=== PATIENT | female | born 1990 | race Caucasian/White ===

== ENCOUNTER 2019-01-26 07:04 | Inpatient (IN) ==
[2019-01-26] MEDS ORDERED: OXYTOCIN 30 UNITS/500 ML BAG IV PRN ×3 (07:40→14:24)
[2019-01-26] MEDS ORDERED: LACTATED RINGER'S 1,000 ML IV PRN ×3 (07:40→11:30)
[2019-01-26] MEDS: LACTATED RINGER'S 1,000 ML IV SCH ×3 (07:45→13:32)
[2019-01-26] MEDS ORDERED: BUPIVACAINE 0.25% 30 ML VIAL ONE ×2 (07:58→13:40)
[2019-01-26] MEDS ORDERED: ePHEDrine sulfate 50 MG/ML AMP ONE (07:58)
[2019-01-26] MEDS ORDERED: fentaNYL citrate 100 MCG/2 ML VIAL ONE ×2 (07:58→13:41)
[2019-01-26] MEDS ORDERED: fentaNYL 2MCG/ML ROPIV 1.25MG/ML 100 ML BAG EPI ONE (07:59)
[2019-01-26 08:05] LABS: Hematocrit (blood only) 37.4 % (37-47); Hemoglobin 13.4 g/dL (12.0-16.0); Mean Corpuscular Volume 97.9 fL (80-100); Mean Platelet Volume 10.1 fL (7.4-10.4); Platelet Count 470 K/uL (130-400); RDW Coefficient of Variation 13.5 % (11.5-14.5); RDW Standard Deviation 47.8 fL (36.4-46.3); Red Blood Count 3.82 M/uL (4.2-5.4); White Blood Count 15.78 K/uL (4.8-10.8)
[2019-01-26 08:06] LABS: Mean Corpuscular Hgb Conc 35.8 g/dL (32-36)
--- NOTE | 2019-01-26 08:54 | Obstetrical Progress Note ---
Date of Service January 26, 2019 Subjective Admit Note 28 F P1001 at 40.2 weeks admitted in labor. Cervix 6 cm by nurse. GBS is negative. Has history of splenectomy with hereditary spherocytosis. FHT Cat 1. Patient requesting an epidural and anticipate normal delivery. Physical Exam Vital Signs (Past 24 Hours): Last Vital Signs Temp 36.8 C 01/26/19 07:20 Pulse 92 H 01/26/19 08:50 Resp 20 01/26/19 07:20 BP 113/71 01/26/19 08:30 Pulse Ox 88 L 01/26/19 08:50
--- NOTE | 2019-01-26 09:08 | Anesthesiology Consultation ---
Date of Service January 26, 2019 Assessment & Plan (1) Encounter for pre-operative examination: Chart Review Chart Review: Acceptable Risk for Surgery and Patient NOT seen in Pre Admission Testing Consults Requested none ASA ASA2 Proposed Anesthesia Anesthesia Type: Labor Epidural History Height/Weight Height: 5 ft 2 in Weight: 82.1 kg Allergies Allergy/AdvReac Type Severity Reaction Status Date / Time No Known Allergies Allergy Unknown Unverified 06/12/15 03:25 Medications Home Medications Medication Instructions Recorded Confirmed Last Taken 1 tab PO DAILY 01/26/19 01/26/19 01/25/19 08:00 Active Medications Generic Name Dose Route Start Last Admin Trade Name Freq PRN Reason Stop Dose Admin Lactated Ringer's 1,000 mls @ 125 mls/hr 01/26/19 07:45 01/26/19 09:02 Lr IV 01/28/19 07:44 999 mls/hr .Q8H YOGI Administration Past Medical History Medical History Abnormal Papanicolaou smear of cervix 2018- Ascus 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 for 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 Ovarian cyst left side traeted with meducation Spherocytosis, hereditary Spondylolysis of lumbar region L5 Past Family History Family History Other No history of previous surgery No known health problems Past Surgical History Surgical History History of splenectomy 2006 Social History Smoking Status: Never smoker Hx Alcohol Use: No Hx Substance Use: No Physical Exam Vital Signs Last Vital Signs Temp 36.8 C 01/26/19 07:20 Pulse 82 01/26/19 09:05 Resp 20 01/26/19 07:20 BP 102/58 L 01/26/19 09:05 Pulse Ox 99 01/26/19 09:04 Testing Laboratory Results 01/26/19 07:51
[2019-01-26] MEDS ORDERED: ONDANSETRON INJ 2 MG/ML 2 ML VIAL IV PRN (09:16)
[2019-01-26] MEDS ORDERED: ePHEDrine sulfate 50 MG/ML AMP IV PRN (09:16)
[2019-01-26] MEDS ORDERED: NALBUPHINE HCL INJ 10 MG/ML AMP IV PRN (09:16)
[2019-01-26] MEDS ORDERED: NALOXONE HCL 0.4 MG/1 ML VIAL/CARP IV PRN (09:16)
[2019-01-26] MEDS ORDERED: DiphenhydrAMINE HCL 50 MG/ML VIAL IV PRN (09:16)
[2019-01-26] MEDS ORDERED: NALOXONE HCL 1 MG in SODIUM CHLORIDE 0.9% 1000ML 1,000 ML IV PRN (09:16)
[2019-01-26] MEDS ORDERED: fentaNYL 2MCG/ML ROPIV 1.25MG/ML 100 ML BAG EPI PRN (09:16)
--- NOTE | 2019-01-26 11:30 | Obstetrical Progress Note ---
Date of Service January 26, 2019 Physical Exam Vital Signs (Past 24 Hours): Last Vital Signs Temp 36.8 C 01/26/19 07:20 Pulse 85 01/26/19 11:24 Resp 20 01/26/19 09:35 BP 107/67 01/26/19 11:21 Pulse Ox 96 01/26/19 11:24 Genitourinary: OB Exam Abdomen: + heart tones and + vertex Manual OB Exam: + cervical dilation 7 cm and 8 cm, + cervical effacement, + station -2 and + amniotic fluid clear OB Exam Monitor Tracing: + external FHT monitor used and + category I will start Oxytocin to augment contractions
[2019-01-26] MEDS ORDERED: HYDROCORTISONE ACETATE 25 MG SUPP PR PRN (14:24)
[2019-01-26] MEDS ORDERED: BISACODYL 10 MG SUPP PR PRN (14:24)
[2019-01-26] MEDS ORDERED: BENZOCAINE 20% AER SPR 82.5 GM CAN EXT PRN (14:24)
[2019-01-26] MEDS ORDERED: ACETAMINOPHEN 325 MG TAB PO PRN (14:24)
[2019-01-26] MEDS ORDERED: SUPERCREAM 0.870% 15 GM JAR EXT PRN (14:24)
[2019-01-26] MEDS ORDERED: DIPHTHERIA/TETANUS/PERTUSSIS 0.5 ML SYR/VIAL IM ONE (14:24)
--- NOTE | 2019-01-26 14:35 | Procedure Note ---
Vaginal Delivery Summary Date of Service January 26, 2019 Vaginal Delivery Summary Delivery Note live female over intact perineum ELISABETH with delayed cord clamping Apgars 8/10 weight pending. Cord blood obtained and placenta delivered spontaneously and intact with 3VC. No tears. EBL 200 ml. Final sponge and instrument count are correct. Mom and baby stable.
--- NOTE | 2019-01-26 15:12 | Anesthesia Procedure Note ---
Date of Service January 26, 2019 Anesthesia Post Epidural Note Vital Signs Vital Signs: Temp Pulse Resp BP Pulse Ox 36.7 C 85 20 93/51 L 98 01/26/19 11:30 01/26/19 15:06 01/26/19 14:50 01/26/19 15:06 01/26/19 14:04 Pain Intensity Bilateral Head: Pain Intensity: 2 Notes Mental Status: alert / awake / arousable Patient Amnestic to Procedure: Yes Nausea / Vomiting: adequately controlled Pain: adequately controlled Airway Patency, RR, SpO2: stable & adequate BP & HR: stable & adequate Hydration State: stable & adequate Neuraxial Anesthesia: sensory block is resolving Anesthetic Complications: no major complications apparent and Pt Satisfied with anesthetic care Epidural: Removed without complications and With tip intact
[2019-01-26] MEDS: DOCUSATE SODIUM 100 MG CAP PO SCH (20:24)
[2019-01-27 07:14] LABS: Hematocrit (blood only) 33.9 % (37-47); Hemoglobin 11.8 g/dL (12.0-16.0); Mean Corpuscular Hgb Conc 34.8 g/dL (32-36); Mean Corpuscular Volume 99.7 fL (80-100); Mean Platelet Volume 10.2 fL (7.4-10.4); Platelet Count 420 K/uL (130-400); RDW Coefficient of Variation 13.6 % (11.5-14.5); RDW Standard Deviation 49.6 fL (36.4-46.3); White Blood Count 20.01 K/uL (4.8-10.8)
[2019-01-27] MEDS: PRENATAL VITAMIN 1 TAB PO SCH (08:16)
[2019-01-27] MEDS: DOCUSATE SODIUM 100 MG CAP PO SCH ×2 (08:16→20:19)
[2019-01-27] MEDS: FERROUS SULFATE 325 MG TAB PO SCH (08:16)
[2019-01-27] MEDS: IBUPROFEN 600 MG TAB PO PRN (08:16)
[2019-01-27] MEDS ORDERED: NON-FORMULARY MEDICATION (Prenatal 1 TAB) PO SCH (09:00)
--- NOTE | 2019-01-27 09:45 | Obstetrical Progress Note ---
Date of Service January 27, 2019 Assessment & Plan (1) normal course: PPD #1 pt doing well anticipate disch tomorrow Subjective Ambulation: ambulating normally Voiding: no voiding problems Passing Gas:: Yes Diet Tolerance:: regular diet Lochia:: Small Feeding Type:: breast feeding Review of Systems All systems reviewed & are unremarkable except as noted in HPI & below Physical Exam Vital Signs (Past 24 Hours) Last Vital Signs Temp 37.1 C 01/27/19 08:00 Pulse 76 01/27/19 08:00 Resp 18 01/27/19 08:00 BP 99/65 L 01/27/19 08:00 Pulse Ox 96 01/27/19 08:00 Constitutional WD/WN, vitals as above well developed and well nourished Eyes PERRL, conjunctivae normal, anicteric sclerae Neck trachea midline, no thyromegaly Respiratory normal respiratory effort, lungs clear to auscultation Auscultation: no crackles, no rales and no wheezes Cardiovascular RRR, no murmur, no edema Gastrointestinal (Abdomen) normal bowel sounds, soft, nontender, no hepatosplenomegaly Uterus is below umbilicus Musculoskeletal no cyanosis or clubbing, extremities motor strength 5/5 Skin no rashes, warm and dry Neurologic patellar DTR's 2+ bilat, sensation intact Psychiatric A+Ox3, euthymic affect Genitourinary normal external appearance
[2019-01-27] MEDS ORDERED: BISACODYL 5 MG TABEC PO SCH (20:00)
[2019-01-28 06:43] LABS: Hematocrit (blood only) 36.1 % (37-47); Hemoglobin 12.6 g/dL (12.0-16.0)
--- NOTE | 2019-01-28 08:39 | Obstetrical Progress Note ---
Date of Service January 28, 2019 Subjective doing well baby with jaundice may need to go to nesting Physical Exam Vital Signs (Past 24 Hours): Last Vital Signs Temp 37 C 01/27/19 23:40 Pulse 60 01/27/19 23:40 Resp 16 01/27/19 23:40 BP 111/70 01/27/19 23:40 Pulse Ox 96 01/27/19 23:40 Constitutional: WD/WN, vitals as above comfortable Gastrointestinal (Abdomen): Percussion/Palpation: abdomen soft fundus firm no edema neg Jessica's possible d/c later today
[2019-01-28] MEDS: FERROUS SULFATE 325 MG TAB PO SCH (09:52)
[2019-01-28] MEDS: PRENATAL VITAMIN 1 TAB PO SCH (09:52)
[2019-01-28] MEDS: DOCUSATE SODIUM 100 MG CAP PO SCH ×2 (09:52→20:25)
[2019-01-28] MEDS: IBUPROFEN 600 MG TAB PO PRN (22:09)
[2019-01-29] MEDS: PRENATAL VITAMIN 1 TAB PO SCH (08:43)
[2019-01-29] MEDS: FERROUS SULFATE 325 MG TAB PO SCH (08:43)
[2019-01-29] MEDS: DOCUSATE SODIUM 100 MG CAP PO SCH (08:43)
--- NOTE | 2019-01-29 10:54 | Obstetrical Progress Note ---
Date of Service January 29, 2019 Subjective doing well OOB tolerating diet Physical Exam Vital Signs (Past 24 Hours): Last Vital Signs Temp 36.7 C 01/29/19 07:00 Pulse 63 01/29/19 07:00 Resp 20 01/29/19 07:00 BP 101/66 01/29/19 07:00 Pulse Ox 96 01/29/19 00:45 Physical Exam: Abdomen soft fundus firm no edema neg Jessica's for discharge Results & Data Laboratory Results Laboratory Results - last 48 hr 01/28/19 05:56 Hgb 12.6 Hct 36.1 L
[2019-01-29] MEDS ORDERED: MEASLES, MUMPS & RUBELLA VIRUS VIAL SQ ONE ×2 (15:37→19:33)
== END 2019-01-29 21:05 | disposition home or self-care (01) | DRG 807 ==
LOC: OPB 07:04 → 4S1 07:06 → 4S2 16:50

== ENCOUNTER 2021-08-12 08:19 | Inpatient (IN) ==
[2021-08-12] MEDS ORDERED: OXYTOCIN 30 UNITS/500 ML BAG IV PRN (08:23)
[2021-08-12 08:56] LABS: Hematocrit (blood only) 38.7 % (37-47); Hemoglobin 13.3 g/dL (12.0-16.0); Mean Corpuscular Hemoglobin 34.6 pg (25-34); Mean Corpuscular Hgb Conc 34.4 g/dL (32-36); Mean Corpuscular Volume 100.8 fL (80-100); Mean Platelet Volume 10.1 fL (7.4-10.4); Nucleated RBC # (auto) 0.02 K/uL (0-0); Nucleated RBC % (auto) 0.2 %; Platelet Count 455 K/uL (130-400); RDW Coefficient of Variation 13.3 % (11.5-14.5); RDW Standard Deviation 48.3 fL (36.4-46.3); Red Blood Count 3.84 M/uL (4.2-5.4); White Blood Count 11.62 K/uL (4.8-10.8)
--- NOTE | 2021-08-12 10:12 | History & Physical Report ---
Date of Service August 12, 2021 Assessment & Plan Admission and Anticipated Discharge Date Admission Date: August 12, 2021 History of Present Illness Chief Complaint: induction of labor for post dates Primary Care Provider: Lindsey Suazo, 31 F P1001 at 40.2 weeks admitted for IOL for post dates and question of echogenic fluid on ultrasound yesterday Allergies Allergy/AdvReac Type Severity Reaction Status Date / Time No Known Allergies Allergy Unknown Verified 08/12/21 08:52 Home Medications Medication Instructions Recorded Confirmed Type 1 tab PO DAILY 01/26/19 08/12/21 History acyclovir 400 mg tablet 400 mg PO TID 08/12/21 08/12/21 History Patient History Medical History Abnormal Papanicolaou smear of cervix 2018- Ascus 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 for 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 Ovarian cyst left side traeted with meducation Spherocytosis, hereditary Spondylolysis of lumbar region L5 Surgical History History of splenectomy 2006 Family History Other No history of previous surgery No known health problems Social History Smoking Status: Never smoker Hx Alcohol Use: No Hx Substance Use: No Preferred Language: Danish Communication Ability: Effective Beliefs That Will Affect Care: None marital status: Current Living Situation: Family Current Living Situation Comment: and 2 daughters (6yo, 2.5yo) Feels Safe at Home: Yes Safety Concerns: Feels Safe At This Time Assistive Devices: None OB History x2 [employer] History wnl Review of Systems All systems reviewed & are unremarkable except as noted in HPI & below Physical Exam Constitutional: WD/WN, vitals as above comfortable Eyes: PERRL, conjunctivae normal, anicteric sclerae Respiratory: normal respiratory effort, lungs clear to auscultation Cardiovascular: RRR, no murmur, no edema Skin: no rashes, warm and dry Neurologic: patellar DTR's 2+ bilat, sensation intact Psychiatric: A+Ox3, euthymic affect Genitourinary: no vaginal lesions, no adnexal mass normal external appearance OB Exam Abdomen: + fundal height (term) Fundus: + relation to umbilicus Manual OB Exam: + cervical dilation fingertip, + cervical effacement 50% and + station high OB Exam Monitor Tracing: + external FHT monitor used, + external uterine monitor used, + category I and + normal FHT variability EFW 7-8 lbs. Results & Data ([facility]) Vital Signs (Past 12 Hours) Vital Signs Temp Pulse Resp BP 08/12/21 08:27 37.1 C 20 08/12/21 08:24 81 135/64 Laboratory Results Laboratory Results - last 48 hr 08/12/21 08/12/21 08/12/21 08:30 08:55 08:55 WBC 11.62 H RBC 3.84 L Hgb 13.3 Hct 38.7 MCV 100.8 H MCH 34.6 H MCHC 34.4 RDW Std Deviation 48.3 H RDW Coeff of Cony 13.3 Plt Count 455 H MPV 10.1 Absolute Nucleated RBC 0.02 H Nucleated RBC % (auto) 0.2 COVID-19 Eval Order Covid19 IDNow atMWAC SARS-CoV-2, RNA, NAAT NEGATIVE Code Status & VTE Plan VTE Prophylaxis Plan VTE Prophylaxis will be ordered: No
[2021-08-12] MEDS ORDERED: DINOPROSTONE 10 MG INSERT PV ONE (10:15)
--- NOTE | 2021-08-12 10:58 | Labor Progress Brief Note ---
Date of Service August 12, 2021 Assessment & Plan Admission and Anticipated Discharge Date Admission Date: August 12, 2021 Physical Exam Genitourinary: Manual OB Exam: + cervical dilation fingertip, + cervical effacement (0) and + station high Cervidil placed vaginally Results & Data ([facility]) Vital Signs (Past 12 Hours) Vital Signs Temp Pulse Resp BP 08/12/21 10:44 36.9 C 81 20 130/77 08/12/21 08:27 37.1 C 20 08/12/21 08:24 81 135/64
[2021-08-12] MEDS ORDERED: BUTORPHANOL TARTRATE 1 MG/ML VIAL IV PRN (18:05)
--- NOTE | 2021-08-12 18:17 | Labor Progress Brief Note ---
Date of Service August 12, 2021 Subjective Reason For Note: Routine Evaluation and Other 40 F P1021 with 34.3 week twins di/di sent from office for prolonged monitoring. In office unable to get both babies traced at same time due to twins and body habitus. A vertex. B is breech. Anterior and posterior placentas. Patient placed on monitor. Twin A Cat 1 and twin B Cat 1. No headaches, visual changes or any signs of pre-eclampsia. No leakage of fluid, bleeding or any contract ions. Will repeat NST and BPP tomorrow morning. Patient instructed to call if any changes. Assessment & Plan Admission and Anticipated Discharge Date Admission Date: August 12, 2021 Results & Data ([facility]) Vital Signs (Past 12 Hours) Vital Signs Temp Pulse Resp BP 08/12/21 15:30 37.1 C 84 20 137/78 08/12/21 13:38 86 134/72 08/12/21 10:44 36.9 C 81 20 130/77 08/12/21 08:27 37.1 C 20 08/12/21 08:24 81 135/64
[2021-08-13] MEDS ORDERED: ACETAMINOPHEN 325 MG TAB PO STA (00:10)
[2021-08-13] MEDS: miSOPROStoL 50 MCG TAB PO SCH ×2 (00:45→06:03)
[2021-08-13] MEDS: LACTATED RINGER'S 1,000 ML IV PRN ×5 (05:51→17:40)
[2021-08-13] MEDS ORDERED: BUPIVACAINE 0.25% 30 ML VIAL ONE ×3 (05:55→08:57)
[2021-08-13] MEDS ORDERED: SODIUM CHLORIDE 0.9% INJ 10 ML VIAL ONE (05:55)
[2021-08-13] MEDS ORDERED: fentaNYL 2MCG/ML ROPIVACAINE 1.25MG/ML 100 ML BAG EPI ONE (05:55)
[2021-08-13] MEDS ORDERED: fentaNYL citrate 100 MCG/2 ML VIAL ONE ×2 (05:55→08:56)
[2021-08-13] MEDS ORDERED: ePHEDrine sulfate 50 MG/ML AMP ONE (05:55)
--- NOTE | 2021-08-13 07:16 | Anesthesiology Consultation ---
Date of Service August 13, 2021 Assessment & Plan (1) Encounter for pre-operative examination: Chart Review Chart Review: Acceptable Risk for Surgery and Patient NOT seen in Pre Admission Testing Consults Requested none ASA ASA2 Proposed Anesthesia Anesthesia Type: Labor Epidural Risk / Benefits Reviewed With: PT / POA / Parent / Guardian, Accepts Plan and Informed Consent Obtained History Height/Weight Height: 5 ft 3 in Weight: 91.626 kg Allergies Allergy/AdvReac Type Severity Reaction Status Date / Time No Known Allergies Allergy Unknown Verified 08/12/21 08:52 Medications Home Medications Medication Instructions Recorded Confirmed Last Taken 1 tab PO DAILY 01/26/19 08/12/21 08/11/21 08:00 acyclovir 400 mg tablet 400 mg PO TID 08/12/21 08/12/21 08/11/21 20:00 Active Medications Generic Name Dose Route Start Last Admin Trade Name Freq PRN Reason Stop Dose Admin Lactated Ringer's 1,000 mls @ 125 mls/hr 08/12/21 08:23 08/13/21 06:43 Lr IV 08/14/21 08:22 125 mls/hr .Q8H PRN Administration L&D Protocol Protocol Misoprostol 50 mcg 08/13/21 00:00 08/13/21 06:03 Misoprostol 50 Mcg Tab PO 09/12/21 00:00 Not Given Q4 YOGI NPO Date Last Intake of Fluids: 08/13/21 Time Last Intake of Fluids: 07:11 Date Last Intake of Solids: 08/12/21 Time Last Intake of Solids: 17:00 Past Medical History Medical History Abnormal Papanicolaou smear of cervix 2018- Ascus 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 for 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 Ovarian cyst left side traeted with meducation Spherocytosis, hereditary Spondylolysis of lumbar region L5 Exercise / Class Metabolic Activity II 4-5 Yardwork/Stairs/Walk up hill Negative for chest pain or shortness of breath. Past Family History Family History Other No history of previous surgery No known health problems Past Surgical History Surgical History History of splenectomy 2006 Past Anesthesia History No Hx of Anesthesia Complications History of PONV No Hx of PONV Social History Smoking Status: Never smoker Hx Alcohol Use: No Hx Substance Use: No Review of Systems Patient denies history of abnormal bleeding or bleeding disorder. Patient denies active use of anticoagulants other than low dose aspirin. Patient denies active symptoms of GERD. Patient denies numbness, tingling or weakness in lower extremities. Physical Exam Vital Signs Last Vital Signs Temp 36.7 C 08/13/21 04:01 Pulse 80 08/13/21 06:41 Resp 18 08/13/21 04:01 BP 130/72 08/13/21 04:01 Pulse Ox 97 08/13/21 06:41 Constitutional not obese (gravid) ENMT Mouth: no TMJ abnormality and oral opening not small Thyromental Distance: > or= 3.5 Finger Breadths Mallampati Class: II Neck normal visual inspection; neck extension not limited Respiratory normal respiratory effort Cardiovascular Rate/Rhythm: regular rate and regular rhythm Neurologic moves all extremities Psychiatric Orientation: alert and oriented x 3 Testing Laboratory Results 08/12/21 08:30
[2021-08-13] MEDS ORDERED: NALOXONE HCL 0.4 MG/1 ML VIAL/CARP IV PRN (07:29)
[2021-08-13] MEDS ORDERED: NALOXONE HCL 1 MG in SODIUM CHLORIDE 0.9% 1000ML 1,000 ML IV PRN (07:29)
[2021-08-13] MEDS ORDERED: fentaNYL 2MCG/ML ROPIVACAINE 1.25MG/ML 100 ML BAG EPI PRN (07:29)
[2021-08-13] MEDS ORDERED: NALBUPHINE HCL INJ 10 MG/ML AMP IV PRN (07:29)
[2021-08-13] MEDS ORDERED: ONDANSETRON INJ 2 MG/ML 2 ML VIAL IV PRN (07:29)
[2021-08-13] MEDS ORDERED: diphenhydrAMINE 50 MG/ML VIAL IV PRN (07:29)
[2021-08-13] MEDS ORDERED: ePHEDrine sulfate 50 MG/ML AMP IV PRN (07:29)
--- NOTE | 2021-08-13 07:44 | Obstetrical Progress Note ---
Date of Service August 13, 2021 Assessment & Plan Admission and Anticipated Discharge Date Admission Date: August 12, 2021 Subjective Patient is seen and examined. She has received epidural and is comfortable at 40.2 wks for IOL since yesterday Reviewed her records and confirmed with her h/o hereditary spherocytosis, splenectomy h/o HSV II 5 years ago, single episode No prodromal symptoms, has been on Acyclovir since 36 weeks VSS Afebrile VE: 8/ 80%/ -1, large bulging bag, AROM'ed abundant clear fluid FHR categ I Continue to monitor closely Anticipate Results & Data ([facility]) Vital Signs (Past 12 Hours) Vital Signs Temp Pulse Resp BP Pulse Ox 08/13/21 07:38 81 130/63 08/13/21 07:37 76 98 08/13/21 07:36 75 128/60 08/13/21 07:34 107 H 135/60 08/13/21 07:32 92 H 111/59 L 98 08/13/21 07:30 78 111/55 L 08/13/21 07:28 82 101/56 L 08/13/21 07:27 82 97 08/13/21 07:26 80 103/58 L 08/13/21 07:24 81 102/56 L 08/13/21 07:23 85 127/65 08/13/21 07:22 88 98 08/13/21 07:20 78 118/72 08/13/21 07:18 80 114/73 08/13/21 07:17 77 94 08/13/21 07:16 85 122/84 08/13/21 07:14 90 131/84 08/13/21 07:12 84 139/67 95 08/13/21 07:10 36.6 C 78 18 138/71 08/13/21 07:08 86 126/64 08/13/21 07:07 85 95 08/13/21 07:06 83 137/76 08/13/21 07:04 83 125/72 08/13/21 07:02 115 H 128/71 08/13/21 07:01 111 H 96 08/13/21 07:00 83 125/73 08/13/21 06:56 88 97 08/13/21 06:51 103 H 96 08/13/21 06:48 98 H 121/71 08/13/21 06:46 89 96 08/13/21 06:41 80 97 08/13/21 06:36 83 93 08/13/21 06:31 81 97 08/13/21 06:26 89 98 08/13/21 06:21 84 95 08/13/21 06:16 90 95 08/13/21 06:11 106 H 95 08/13/21 04:01 36.7 C 94 H 18 130/72 08/12/21 22:33 36.5 C 81 18 116/70
--- NOTE | 2021-08-13 08:14 | Obstetrical Progress Note ---
Date of Service August 13, 2021 Assessment & Plan Admission and Anticipated Discharge Date Admission Date: August 12, 2021 Subjective FHR was having early decels with each contractions VE; 8-9/ 90%/ 0 station, direct OP FHR now 140's with good variability Continue to monitor closely Results & Data ([facility]) Vital Signs (Past 12 Hours) Vital Signs Temp Pulse Resp BP Pulse Ox 08/13/21 08:11 84 105/53 L 08/13/21 08:08 121 H 179/58 H 08/13/21 08:07 100 H 165/72 H 99 08/13/21 08:04 102 H 126/65 08/13/21 08:02 80 124/58 L 99 08/13/21 08:00 81 116/59 L 08/13/21 07:58 88 121/60 08/13/21 07:57 82 99 08/13/21 07:56 83 109/59 L 08/13/21 07:54 82 112/57 L 08/13/21 07:52 84 109/57 L 98 08/13/21 07:50 82 116/56 L 08/13/21 07:48 83 110/55 L 08/13/21 07:47 90 100 08/13/21 07:46 83 124/57 L 08/13/21 07:44 90 127/55 L 08/13/21 07:42 84 103/58 L 99 08/13/21 07:40 79 100/58 L 08/13/21 07:38 81 130/63 08/13/21 07:37 76 98 08/13/21 07:36 75 128/60 08/13/21 07:34 107 H 135/60 08/13/21 07:32 92 H 111/59 L 98 08/13/21 07:30 78 111/55 L 08/13/21 07:28 82 101/56 L 08/13/21 07:27 82 97 08/13/21 07:26 80 103/58 L 08/13/21 07:24 81 102/56 L 08/13/21 07:23 85 127/65 08/13/21 07:22 88 98 08/13/21 07:20 78 118/72 08/13/21 07:18 80 114/73 08/13/21 07:17 77 94 08/13/21 07:16 85 122/84 08/13/21 07:14 90 131/84 08/13/21 07:12 84 139/67 95 08/13/21 07:10 36.6 C 78 18 138/71 08/13/21 07:08 86 126/64 08/13/21 07:07 85 95 08/13/21 07:06 83 137/76 08/13/21 07:04 83 125/72 08/13/21 07:02 115 H 128/71 08/13/21 07:01 111 H 96 08/13/21 07:00 83 125/73 08/13/21 06:56 88 97 08/13/21 06:51 103 H 96 08/13/21 06:48 98 H 121/71 08/13/21 06:46 89 96 08/13/21 06:41 80 97 08/13/21 06:36 83 93 08/13/21 06:31 81 97 08/13/21 06:26 89 98 08/13/21 06:21 84 95 08/13/21 06:16 90 95 08/13/21 06:11 106 H 95 08/13/21 04:01 36.7 C 94 H 18 130/72 08/12/21 22:33 36.5 C 81 18 116/70
[2021-08-13] MEDS ORDERED: NURSING L&D Epidural Breakthrough Pain Update ONE (09:51)
[2021-08-13] MEDS ORDERED: OXYTOCIN 30 UNITS/500 ML BAG IV PRN ×2 (12:01→16:39)
--- NOTE | 2021-08-13 15:17 | Obstetrical Progress Note ---
Date of Service August 13, 2021 Assessment & Plan Admission and Anticipated Discharge Date Admission Date: August 12, 2021 Subjective Late entry from 14:15 Patient is reevaluated VE; unchanged except mild progress with station, 8-9 cm/80%/0 to +1 Pitocin was discontinued due to IV site blockage FHR had been categ I IUP was placed and pitocin was restarted Bed side US confirmed OP with slight turn , ROP Continue to monitor closely Results & Data ([facility]) Vital Signs (Past 12 Hours) Vital Signs Temp Pulse Resp BP Pulse Ox 08/13/21 15:12 119 H 82 L 08/13/21 15:07 127 H 98 08/13/21 15:02 116 H 98 08/13/21 14:57 120 H 98 08/13/21 14:55 123 H 124/77 08/13/21 14:52 110 H 98 08/13/21 14:50 36.8 C 20 08/13/21 14:47 110 H 98 08/13/21 14:42 118 H 97 08/13/21 14:40 122 H 132/66 08/13/21 14:37 129 H 96 08/13/21 14:35 37.2 C 120 H 18 87 L 08/13/21 14:32 96 H 98 08/13/21 14:27 101 H 97 08/13/21 14:22 94 H 97 08/13/21 14:20 37.2 C 08/13/21 14:17 86 98 08/13/21 14:12 92 H 98 08/13/21 14:10 88 138/68 08/13/21 14:07 92 H 98 08/13/21 14:02 97 H 97 08/13/21 13:57 96 H 96 08/13/21 13:55 99 H 120/59 L 08/13/21 13:52 96 H 75 L 08/13/21 13:51 96 H 85 L 08/13/21 13:47 90 96 08/13/21 13:46 86 86 L 08/13/21 13:42 90 98 08/13/21 13:37 93 H 98 08/13/21 13:32 97 H 97 08/13/21 13:27 104 H 97 08/13/21 13:26 94 H 128/69 08/13/21 13:22 88 97 08/13/21 13:19 108 H 89 L 08/13/21 13:17 93 H 97 08/13/21 13:12 93 H 98 08/13/21 13:09 94 H 125/74 08/13/21 13:07 84 98 08/13/21 13:02 88 99 08/13/21 12:57 87 100 08/13/21 12:55 88 130/77 08/13/21 12:52 97 H 99 08/13/21 12:47 87 100 08/13/21 12:42 87 98 08/13/21 12:39 91 H 119/80 08/13/21 12:37 85 99 08/13/21 12:32 86 100 08/13/21 12:28 96 H 86 L 08/13/21 12:27 84 100 08/13/21 12:25 98 H 116/70 08/13/21 12:22 83 98 08/13/21 12:17 80 99 08/13/21 12:12 85 96 08/13/21 12:10 81 121/73 08/13/21 12:07 85 98 08/13/21 12:02 84 99 08/13/21 11:57 76 98 08/13/21 11:55 73 126/68 08/13/21 11:52 77 98 08/13/21 11:47 97 H 119/69 97 08/13/21 11:42 73 100 08/13/21 11:37 78 100 08/13/21 11:32 79 99 08/13/21 11:27 78 98 08/13/21 11:26 80 123/53 L 08/13/21 11:22 80 97 08/13/21 11:17 90 96 08/13/21 11:12 77 106/69 99 08/13/21 11:07 77 100 08/13/21 11:02 77 100 08/13/21 10:57 78 99 08/13/21 10:56 75 106/52 L 08/13/21 10:52 79 98 08/13/21 10:47 81 98 08/13/21 10:45 36.8 C 18 08/13/21 10:42 82 99 08/13/21 10:39 83 110/64 08/13/21 10:37 80 96 08/13/21 10:32 78 97 08/13/21 10:27 72 97 08/13/21 10:24 76 108/62 08/13/21 10:22 77 97 08/13/21 10:17 72 96 08/13/21 10:12 75 96 08/13/21 10:09 77 106/56 L 08/13/21 10:07 78 94 08/13/21 10:02 73 96 08/13/21 09:57 89 95 08/13/21 09:55 93 H 111/57 L 08/13/21 09:52 74 95 08/13/21 09:47 76 94 08/13/21 09:42 100 H 96 08/13/21 09:39 82 105/55 L 08/13/21 09:37 75 103/56 L 95 08/13/21 09:35 85 107/57 L 08/13/21 09:33 80 119/55 L 08/13/21 09:32 87 97 08/13/21 09:30 85 115/65 08/13/21 09:29 85 94/60 L 08/13/21 09:27 76 115/59 L 94 08/13/21 09:25 82 113/57 L 08/13/21 09:23 78 125/75 08/13/21 09:22 83 95 08/13/21 09:21 76 129/71 08/13/21 09:19 77 96/46 L 08/13/21 09:17 88 118/63 95 08/13/21 09:12 87 97 08/13/21 09:11 82 127/72 08/13/21 09:07 94 H 95 08/13/21 09:02 110 H 97 08/13/21 08:57 102 H 94 08/13/21 08:52 93 H 128/69 97 08/13/21 08:47 92 H 96 08/13/21 08:42 94 H 97 08/13/21 08:39 107 H 127/76 85 L 08/13/21 08:37 90 96 08/13/21 08:32 91 H 97 08/13/21 08:27 86 97 08/13/21 08:22 82 99 08/13/21 08:20 85 104/57 L 08/13/21 08:18 86 108/56 L 08/13/21 08:17 80 98 08/13/21 08:16 85 102/54 L 08/13/21 08:14 83 108/51 L 08/13/21 08:12 86 104/59 L 100 08/13/21 08:11 84 105/53 L 08/13/21 08:08 121 H 179/58 H 08/13/21 08:07 100 H 165/72 H 99 08/13/21 08:04 102 H 126/65 08/13/21 08:02 80 124/58 L 99 08/13/21 08:00 81 116/59 L 08/13/21 07:58 88 121/60 08/13/21 07:57 82 99 08/13/21 07:56 83 109/59 L 08/13/21 07:54 82 112/57 L 08/13/21 07:52 84 109/57 L 98 08/13/21 07:50 82 116/56 L 08/13/21 07:48 83 110/55 L 08/13/21 07:47 90 100 08/13/21 07:46 83 124/57 L 08/13/21 07:44 90 127/55 L 08/13/21 07:42 84 103/58 L 99 08/13/21 07:40 79 100/58 L 08/13/21 07:38 81 130/63 08/13/21 07:37 76 98 08/13/21 07:36 75 128/60 08/13/21 07:34 107 H 135/60 08/13/21 07:32 92 H 111/59 L 98 08/13/21 07:30 78 111/55 L 08/13/21 07:28 82 101/56 L 08/13/21 07:27 82 97 08/13/21 07:26 80 103/58 L 08/13/21 07:24 81 102/56 L 08/13/21 07:23 85 127/65 08/13/21 07:22 88 98 08/13/21 07:20 78 118/72 08/13/21 07:18 80 114/73 08/13/21 07:17 77 94 08/13/21 07:16 85 122/84 08/13/21 07:14 90 131/84 08/13/21 07:12 84 139/67 95 08/13/21 07:10 36.6 C 78 18 138/71 08/13/21 07:08 86 126/64 08/13/21 07:07 85 95 08/13/21 07:06 83 137/76 08/13/21 07:04 83 125/72 08/13/21 07:02 115 H 128/71 08/13/21 07:01 111 H 96 08/13/21 07:00 83 125/73 08/13/21 06:56 88 97 08/13/21 06:51 103 H 96 08/13/21 06:48 98 H 121/71 08/13/21 06:46 89 96 08/13/21 06:41 80 97 08/13/21 06:36 83 93 08/13/21 06:31 81 97 08/13/21 06:26 89 98 08/13/21 06:21 84 95 08/13/21 06:16 90 95 08/13/21 06:11 106 H 95 08/13/21 04:01 36.7 C 94 H 18 130/72
--- NOTE | 2021-08-13 15:28 | Obstetrical Progress Note ---
Date of Service August 13, 2021 Assessment & Plan Admission and Anticipated Discharge Date Admission Date: August 12, 2021 Subjective It had been 1 hour since IUPC was placed and adequate contraction pattern was noted. FHR 150's with early decels to 90-100 's with contractions with recovery and good variability in between She stayed knee chest position for about 20 minutes VE: 10/ 100%/+2 Started pushing Continue to monitor closely Results & Data ([facility]) Vital Signs (Past 12 Hours) Vital Signs Temp Pulse Resp BP Pulse Ox 08/13/21 15:22 145 H 91 08/13/21 15:19 138 H 85 L 08/13/21 15:17 154 H 100 08/13/21 15:12 119 H 82 L 08/13/21 15:07 127 H 98 08/13/21 15:02 116 H 98 08/13/21 14:57 120 H 98 08/13/21 14:55 123 H 124/77 08/13/21 14:52 110 H 98 08/13/21 14:50 36.8 C 20 08/13/21 14:47 110 H 98 08/13/21 14:42 118 H 97 08/13/21 14:40 122 H 132/66 08/13/21 14:37 129 H 96 08/13/21 14:35 37.2 C 120 H 18 87 L 08/13/21 14:32 96 H 98 08/13/21 14:27 101 H 97 08/13/21 14:22 94 H 97 08/13/21 14:20 37.2 C 08/13/21 14:17 86 98 08/13/21 14:12 92 H 98 08/13/21 14:10 88 138/68 08/13/21 14:07 92 H 98 08/13/21 14:02 97 H 97 08/13/21 13:57 96 H 96 08/13/21 13:55 99 H 120/59 L 08/13/21 13:52 96 H 75 L 08/13/21 13:51 96 H 85 L 08/13/21 13:47 90 96 08/13/21 13:46 86 86 L 08/13/21 13:42 90 98 08/13/21 13:37 93 H 98 08/13/21 13:32 97 H 97 08/13/21 13:27 104 H 97 08/13/21 13:26 94 H 128/69 08/13/21 13:22 88 97 08/13/21 13:19 108 H 89 L 08/13/21 13:17 93 H 97 08/13/21 13:12 93 H 98 08/13/21 13:09 94 H 125/74 08/13/21 13:07 84 98 08/13/21 13:02 88 99 08/13/21 12:57 87 100 08/13/21 12:55 88 130/77 08/13/21 12:52 97 H 99 08/13/21 12:47 87 100 08/13/21 12:42 87 98 08/13/21 12:39 91 H 119/80 08/13/21 12:37 85 99 08/13/21 12:32 86 100 08/13/21 12:28 96 H 86 L 08/13/21 12:27 84 100 08/13/21 12:25 98 H 116/70 08/13/21 12:22 83 98 08/13/21 12:17 80 99 08/13/21 12:12 85 96 08/13/21 12:10 81 121/73 08/13/21 12:07 85 98 08/13/21 12:02 84 99 08/13/21 11:57 76 98 08/13/21 11:55 73 126/68 08/13/21 11:52 77 98 08/13/21 11:47 97 H 119/69 97 08/13/21 11:42 73 100 08/13/21 11:37 78 100 08/13/21 11:32 79 99 08/13/21 11:27 78 98 08/13/21 11:26 80 123/53 L 08/13/21 11:22 80 97 08/13/21 11:17 90 96 08/13/21 11:12 77 106/69 99 08/13/21 11:07 77 100 08/13/21 11:02 77 100 08/13/21 10:57 78 99 08/13/21 10:56 75 106/52 L 08/13/21 10:52 79 98 08/13/21 10:47 81 98 08/13/21 10:45 36.8 C 18 08/13/21 10:42 82 99 08/13/21 10:39 83 110/64 09/22/21 10:37 80 96 08/13/21 10:32 78 97 08/13/21 10:27 72 97 08/13/21 10:24 76 108/62 08/13/21 10:22 77 97 08/13/21 10:17 72 96 08/13/21 10:12 75 96 08/13/21 10:09 77 106/56 L 08/13/21 10:07 78 94 08/13/21 10:02 73 96 08/13/21 09:57 89 95 08/13/21 09:55 93 H 111/57 L 08/13/21 09:52 74 95 08/13/21 09:47 76 94 08/13/21 09:42 100 H 96 08/13/21 09:39 82 105/55 L 08/13/21 09:37 75 103/56 L 95 08/13/21 09:35 85 107/57 L 08/13/21 09:33 80 119/55 L 08/13/21 09:32 87 97 08/13/21 09:30 85 115/65 08/13/21 09:29 85 94/60 L 08/13/21 09:27 76 115/59 L 94 08/13/21 09:25 82 113/57 L 08/13/21 09:23 78 125/75 08/13/21 09:22 83 95 08/13/21 09:21 76 129/71 08/13/21 09:19 77 96/46 L 08/13/21 09:17 88 118/63 95 08/13/21 09:12 87 97 08/13/21 09:11 82 127/72 08/13/21 09:07 94 H 95 08/13/21 09:02 110 H 97 08/13/21 08:57 102 H 94 08/13/21 08:52 93 H 128/69 97 08/13/21 08:47 92 H 96 08/13/21 08:42 94 H 97 08/13/21 08:39 107 H 127/76 85 L 08/13/21 08:37 90 96 08/13/21 08:32 91 H 97 08/13/21 08:27 86 97 08/13/21 08:22 82 99 08/13/21 08:20 85 104/57 L 08/13/21 08:18 86 108/56 L 08/13/21 08:17 80 98 08/13/21 08:16 85 102/54 L 08/13/21 08:14 83 108/51 L 08/13/21 08:12 86 104/59 L 100 08/13/21 08:11 84 105/53 L 08/13/21 08:08 121 H 179/58 H 08/13/21 08:07 100 H 165/72 H 99 08/13/21 08:04 102 H 126/65 08/13/21 08:02 80 124/58 L 99 08/13/21 08:00 81 116/59 L 08/13/21 07:58 88 121/60 08/13/21 07:57 82 99 08/13/21 07:56 83 109/59 L 08/13/21 07:54 82 112/57 L 08/13/21 07:52 84 109/57 L 98 08/13/21 07:50 82 116/56 L 08/13/21 07:48 83 110/55 L 08/13/21 07:47 90 100 08/13/21 07:46 83 124/57 L 08/13/21 07:44 90 127/55 L 08/13/21 07:42 84 103/58 L 99 08/13/21 07:40 79 100/58 L 08/13/21 07:38 81 130/63 08/13/21 07:37 76 98 08/13/21 07:36 75 128/60 08/13/21 07:34 107 H 135/60 08/13/21 07:32 92 H 111/59 L 98 08/13/21 07:30 78 111/55 L 08/13/21 07:28 82 101/56 L 08/13/21 07:27 82 97 08/13/21 07:26 80 103/58 L 08/13/21 07:24 81 102/56 L 08/13/21 07:23 85 127/65 08/13/21 07:22 88 98 08/13/21 07:20 78 118/72 08/13/21 07:18 80 114/73 08/13/21 07:17 77 94 08/13/21 07:16 85 122/84 08/13/21 07:14 90 131/84 08/13/21 07:12 84 139/67 95 08/13/21 07:10 36.6 C 78 18 138/71 08/13/21 07:08 86 126/64 08/13/21 07:07 85 95 08/13/21 07:06 83 137/76 08/13/21 07:04 83 125/72 08/13/21 07:02 115 H 128/71 08/13/21 07:01 111 H 96 08/13/21 07:00 83 125/73 08/13/21 06:56 88 97 08/13/21 06:51 103 H 96 08/13/21 06:48 98 H 121/71 08/13/21 06:46 89 96 08/13/21 06:41 80 97 08/13/21 06:36 83 93 08/13/21 06:31 81 97 08/13/21 06:26 89 98 08/13/21 06:21 84 95 08/13/21 06:16 90 95 08/13/21 06:11 106 H 95 08/13/21 04:01 36.7 C 94 H 18 130/72
[2021-08-13] MEDS ORDERED: MINERAL OIL 30 ML UDC ONE (16:15)
[2021-08-13] MEDS ORDERED: ACETAMINOPHEN 325 MG TAB PO PRN (16:39)
[2021-08-13] MEDS ORDERED: DIPHTHERIA/TETANUS/PERTUSSIS 0.5 ML SYR/VIAL IM ONE (16:39)
[2021-08-13] MEDS ORDERED: oxyCODONE/ACETAMINOPHEN 5mg/325mg TAB PO PRN (16:39)
[2021-08-13] MEDS ORDERED: bisacodyL 10 MG SUPP PR PRN (16:39)
[2021-08-13] MEDS ORDERED: SUPERCREAM 0.870% 15 GM JAR EXT PRN (16:39)
[2021-08-13] MEDS ORDERED: HYDROCORTISONE ACETATE 25 MG SUPP PR PRN (16:39)
[2021-08-13] MEDS ORDERED: BENZOCAINE 20% AER SPR 82.5 GM CAN EXT PRN (16:39)
[2021-08-13] MEDS ORDERED: MEASLES, MUMPS & RUBELLA VIRUS VIAL SQ ONE (16:39)
[2021-08-13 17:02] LABS: Hematocrit (blood only) 34.3 % (37-47); Hemoglobin 12.1 g/dL (12.0-16.0); Mean Corpuscular Hemoglobin 35.2 pg (25-34); Mean Corpuscular Hgb Conc 35.3 g/dL (32-36); Mean Corpuscular Volume 99.7 fL (80-100); Mean Platelet Volume 9.9 fL (7.4-10.4); Platelet Count 366 K/uL (130-400); RDW Coefficient of Variation 13.3 % (11.5-14.5); RDW Standard Deviation 47.9 fL (36.4-46.3); Red Blood Count 3.44 M/uL (4.2-5.4); White Blood Count 26.67 K/uL (4.8-10.8)
--- NOTE | 2021-08-13 17:07 | Delivery Summary ---
Vaginal Delivery Summary Date of Service August 13, 2021 Vaginal Delivery Summary Time of delivery 1617 p.m. Patient was found to be fully dilated and desire to push she pushed for about an hour without any progress. She was then switched to knee chest position and pushed another 15 to 20 minutes and then turned her back. Head was found to be at +3 station she pushed for about 2 hours total and delivered the head over intact perineum. There was a nuchal cord around the neck x1 which was reduced, shoulders were delivered with minimal traction, there was handed off to the mother that her mouth and nose were suctioned. Cord was clamped x2 and cut. Baby was handed off to the waiting pediatric team. Vagina and perineum were checked for lacerations. There was a small second-degree laceration at 5 o'clock position at the hymenal ring. Rectal exam was done and found to have intact sphincter tone. This laceration was repaired with 2-0 Vicryl in a running locked fashion skin in a subcuticular fashion. Excellent hemostasis was achieved. Vagina labia were intact. Placenta was found to be in the vagina delivered spontaneously as intact and complete. Uterus was explored found to be empty. Lower segment was cleared of all clots and debris's, fundus was firm, EBL was 200 mL. Mom and baby tolerated procedure well. Sponge, needle, instrument count was correct x2. It was a viable male infant Apgars were 8/9 and weight was 3919 gr. No complications happened and I was present during whole procedure.
[2021-08-13 17:16] LABS: Basophils # (auto) 0.01 K/uL (0-0.2); Immature Granulocytes % (auto) 0.7 %; Lymphocytes # (auto) 0.79 K/uL (1.2-3.4); Monocytes # (auto) 2.06 K/uL (0.11-0.59); Monocytes % (auto) 7.7 %; Neutrophils # (auto) 23.61 K/uL (1.4-6.5); Neutrophils % (auto) 88.6 %
[2021-08-13] MEDS ORDERED: Nursing to Pharmacy Communication SCH (17:30)
[2021-08-13] MEDS: cefOXitin 2,000 MG in DEXTROSE 5% 50 ML IV SCH ×2 (17:41→23:00)
--- NOTE | 2021-08-13 18:06 | Anesthesia Procedure Note ---
Date of Service August 13, 2021 Anesthesia Post Epidural Note Vital Signs Vital Signs: Temp Pulse Resp BP Pulse Ox 37.2 C 117 H 20 124/56 L 78 L 08/13/21 17:56 08/13/21 17:39 08/13/21 17:56 08/13/21 17:39 08/13/21 16:17 Pain Intensity Abdomen: Pain Intensity: 4 Notes Mental Status: alert / awake / arousable and participated in evaluation Nausea / Vomiting: adequately controlled Pain: adequately controlled Airway Patency, RR, SpO2: stable & adequate BP & HR: stable & adequate Hydration State: stable & adequate Neuraxial Anesthesia: was administered and sensory block is resolving Anesthetic Complications: no major complications apparent and Pt Satisfied with anesthetic care Epidural: Removed without complications and With tip intact
[2021-08-13] MEDS: CLINDAMYCIN 900 MG in DEXTROSE 5% 50 ML IV SCH (18:49)
[2021-08-13] MEDS: IBUPROFEN 600 MG TAB PO PRN (20:59)
[2021-08-13] MEDS: DOCUSATE SODIUM 100 MG CAP PO SCH (21:00)
[2021-08-14] MEDS: CLINDAMYCIN 900 MG in DEXTROSE 5% 50 ML IV SCH ×3 (01:42→17:00)
[2021-08-14] MEDS: cefOXitin 2,000 MG in DEXTROSE 5% 50 ML IV SCH ×4 (04:50→23:26)
[2021-08-14 05:56] LABS: Hemoglobin 10.4 g/dL (12.0-16.0); Mean Corpuscular Hemoglobin 34.7 pg (25-34); Mean Corpuscular Hgb Conc 33.5 g/dL (32-36); Mean Corpuscular Volume 103.3 fL (80-100); Mean Platelet Volume 9.9 fL (7.4-10.4); Platelet Count 354 K/uL (130-400); RDW Coefficient of Variation 13.5 % (11.5-14.5); RDW Standard Deviation 51.1 fL (36.4-46.3); White Blood Count 28.28 K/uL (4.8-10.8)
[2021-08-14 06:08] LABS: Albumin Level 1.9 gm/dl (3.4-5.0); BUN Creatinine Ratio 10.8 (10-20); Calcium 8.2 mg/dl (8.5-10.1); Creatinine Clr Calc Pharmacy 97.2 ml/min; Est GFR (African American) 98.1 ml/min; Est GFR (Non-African American) 84.7 ml/min; Potassium 3.7 mmol/L (3.5-5.1)
[2021-08-14 06:09] LABS: Albumin Globulin Ratio 0.6 (0.9-2); Bilirubin,Total 0.4 mg/dl (0.2-1); Globulin 3.2 gm/dl (2.5-4.0); Total Protein 5.1 gm/dl (6.4-8.2)
[2021-08-14] MEDS: DOCUSATE SODIUM 100 MG CAP PO SCH ×2 (08:04→20:15)
[2021-08-14] MEDS: FERROUS SULFATE 325 MG TAB PO SCH (08:04)
[2021-08-14] MEDS: PRENATAL VITAMIN 1 TAB PO SCH (08:04)
[2021-08-14] MEDS: IBUPROFEN 600 MG TAB PO PRN ×2 (08:04→20:15)
--- NOTE | 2021-08-14 10:28 | Obstetrical Progress Note ---
Date of Service August 14, 2021 Subjective Ambulation: ambulating normally Voiding: no voiding problems Passing Gas:: Yes Diet Tolerance:: regular diet Lochia:: Small Feeding Type:: breast feeding Current Pain Level(1-10): 0 doing well Physical Exam Constitutional WD/WN, vitals as above comfortable Abdomen soft and non-tender fundus firm no edema neg Jessica's Continue antibiotics Will repeat CBC in AM tend d/c in AM Results & Data ([facility]) Vital Signs (Past 12 Hours) Vital Signs Temp Pulse Resp BP Pulse Ox 08/14/21 07:20 36.7 C 86 20 103/67 98 08/14/21 03:50 36.5 C 78 16 112/67 99 08/14/21 00:26 36.6 C 96 H 16 96/61 L 97
[2021-08-14] MEDS ORDERED: bisacodyL 5 MG TABEC PO SCH (20:00)
[2021-08-15 00:54] VITALS: BP 99/56; PULSE 88; TEMP 98.4; O2SAT 97
[2021-08-15] MEDS: CLINDAMYCIN 900 MG in DEXTROSE 5% 50 ML IV SCH ×2 (01:30→10:45)
[2021-08-15] MEDS: cefOXitin 2,000 MG in DEXTROSE 5% 50 ML IV SCH ×2 (05:25→11:29)
[2021-08-15 06:08] LABS: Basophils # (auto) 0.06 K/uL (0-0.2); Basophils % (auto) 0.3 %; Eosinophils # (auto) 0.27 K/uL (0-0.5); Eosinophils % (auto) 1.3 %; Hemoglobin 9.9 g/dL (12.0-16.0); Immature Granulocytes # (auto) 0.24 K/uL (0.00-0.02); Immature Granulocytes % (auto) 1.1 %; Lymphocytes # (auto) 2.99 K/uL (1.2-3.4); Lymphocytes % (auto) 14.1 %; Mean Corpuscular Hemoglobin 34.9 pg (25-34); Mean Corpuscular Hgb Conc 34.1 g/dL (32-36); Mean Corpuscular Volume 102.1 fL (80-100); Mean Platelet Volume 9.7 fL (7.4-10.4); Monocytes # (auto) 1.33 K/uL (0.11-0.59); Monocytes % (auto) 6.3 %; Neutrophils # (auto) 16.26 K/uL (1.4-6.5); Neutrophils % (auto) 76.9 %; Platelet Count 373 K/uL (130-400); RDW Coefficient of Variation 13.5 % (11.5-14.5); RDW Standard Deviation 50.2 fL (36.4-46.3); Red Blood Count 2.84 M/uL (4.2-5.4); White Blood Count 21.15 K/uL (4.8-10.8)
[2021-08-15] MEDS: PRENATAL VITAMIN 1 TAB PO SCH (08:18)
[2021-08-15] MEDS: FERROUS SULFATE 325 MG TAB PO SCH (08:18)
[2021-08-15] MEDS: DOCUSATE SODIUM 100 MG CAP PO SCH ×2 (08:18→08:21)
--- NOTE | 2021-08-15 09:33 | Obstetrical Progress Note ---
Date of Service August 15, 2021 Subjective Ambulation: ambulating normally Voiding: no voiding problems Passing Gas:: Yes Diet Tolerance:: regular diet Lochia:: Small Feeding Type:: breast feeding Current Pain Level(1-10): 0 doing well afebrile feels good WBC is down Physical Exam Constitutional WD/WN, vitals as above well developed and comfortable abdomen non-tender fundus is firm will d/c on oral Keflex for 7 days f/u in office in 1 week Results & Data ([facility]) Vital Signs (Past 12 Hours) Vital Signs Temp Pulse Resp BP Pulse Ox 08/14/21 23:20 36.9 C 88 16 99/56 L 97 Laboratory Results Laboratory Results - last 48 hr 08/13/21 08/13/21 08/13/21 16:49 16:49 18:34 WBC 26.67 H RBC 3.44 L Hgb 12.1 Hct 34.3 L MCV 99.7 MCH 35.2 H MCHC 35.3 RDW Std Deviation 47.9 H RDW Coeff of Cony 13.3 Plt Count 366 MPV 9.9 Immature Gran % (Auto) 0.7 Neut % (Auto) 88.6 Lymph % (Auto) 3.0 [place] % (Auto) 7.7 Eos % (Auto) 0.0 Baso % (Auto) 0.0 Neut # (Auto) 23.61 H Lymph # (Auto) 0.79 L [place] # (Auto) 2.06 H Eos # (Auto) 0.00 Baso # (Auto) 0.01 Immature Gran # (Auto) 0.20 H Sodium Potassium Chloride Carbon Dioxide Anion Gap BUN Creatinine Est Cr Clr Drug Dosing Est GFR ( Amer) Est GFR (Non-Af Amer) BUN/Creatinine Ratio Glucose Lactate 5.1 H* Calcium Total Bilirubin AST ALT Alkaline Phosphatase Total Protein Albumin Globulin Albumin/Globulin Ratio Procalcitonin 0.13 08/13/21 08/14/21 08/14/21 18:34 05:40 05:40 WBC 28.28 H RBC 3.00 L Hgb 10.4 L Hct 31.0 L MCV 103.3 H MCH 34.7 H MCHC 33.5 RDW Std Deviation 51.1 H RDW Coeff of [place] 13.5 Plt Count 354 MPV 9.9 Immature Gran % (Auto) Neut % (Auto) Lymph % (Auto) [place] % (Auto) Eos % (Auto) Baso % (Auto) Neut # (Auto) Lymph # (Auto) [place] # (Auto) Eos # (Auto) Baso # (Auto) Immature Gran # (Auto) Sodium 135 L Potassium 3.7 Chloride 112 H Carbon Dioxide 23 Anion Gap 0 L BUN 10 Creatinine 0.91 Est Cr Clr Drug Dosing 97.2 Est GFR ( Amer) 98.1 Est GFR (Non-Af Amer) 84.7 BUN/Creatinine Ratio 10.8 Glucose 89 Lactate 5.2 H* Calcium 8.2 L Total Bilirubin 0.4 AST 24 ALT 13 Alkaline Phosphatase 101 Total Protein 5.1 L Albumin 1.9 L Globulin 3.2 Albumin/Globulin Ratio 0.6 L Procalcitonin 08/14/21 08/15/21 05:40 05:44 WBC 21.15 H RBC 2.84 L Hgb 9.9 L Hct 29.0 L MCV 102.1 H MCH 34.9 H MCHC 34.1 RDW Std Deviation 50.2 H RDW Coeff of [place] 13.5 Plt Count 373 MPV 9.7 Immature Gran % (Auto) 1.1 Neut % (Auto) 76.9 Lymph % (Auto) 14.1 [place] % (Auto) 6.3 Eos % (Auto) 1.3 Baso % (Auto) 0.3 Neut # (Auto) 16.26 H Lymph # (Auto) 2.99 [place] # (Auto) 1.33 H Eos # (Auto) 0.27 Baso # (Auto) 0.06 Immature Gran # (Auto) 0.24 H Sodium Potassium Chloride Carbon Dioxide Anion Gap BUN Creatinine Est Cr Clr Drug Dosing Est GFR ( Amer) Est GFR (Non-Af Amer) BUN/Creatinine Ratio Glucose Lactate 1.5 Calcium Total Bilirubin AST ALT Alkaline Phosphatase Total Protein Albumin Globulin Albumin/Globulin Ratio Procalcitonin
== END 2021-08-15 13:30 | disposition home or self-care (01) | DRG 806 ==
LOC: 4S1 08:19 → 4S2 08-13 20:24
DX: O98.52 Other viral diseases complicating childbirth; Z3A.40 40 weeks gestation of pregnancy; O48.0 Post-term pregnancy; O28.3 Abnormal ultrasonic finding on antenatal screening of mother; O70.1 Second degree perineal laceration during delivery; O36.8390 Maternal care for abnormalities of the fetal heart rate or rhythm, unspecified trimester, not applicable or unspecified; O69.81X0 Labor and delivery complicated by cord around neck, without compression, not applicable or unspecified; Z37.0 Single live birth; B00.9 Herpesviral infection, unspecified; Z79.899 Other long term (current) drug therapy